=== PATIENT | male | born 1935 | race Caucasian/White ===

== ENCOUNTER 2016-06-15 17:00 | Inpatient (IN) | payer MEDICARE, OTHER ==
[2016-06-15 14:54] LABS: BASO % 0.2 % (0-2); EOS % 0.2 % (0-7); HCT-HEMATOCRIT 35.9 % (36.0-53.5); HGB-HEMOGLOBIN 11.8 gm/dl (13.5-17.0); IMMATURE GRANULOCYTES ABSOLUTE 0.06 tho/cmm (0-0.03); IMMATURE GRANULOCYTES PERCENT 0.6 % (0-0.3); LYMPH % 11.9 % (20-45); LYMPH ABSOLUTE COUNT 1.2 tho/cmm (0.8-4.5); MCH (MEAN CORPUSCULAR HGB) 29.7 pg (28.0-32.0); MCHC MEAN CORPUSCULAR HGB CONC 32.9 % (32.0-36.0); MCV (MEAN CELL VOLUME) 90.4 fl (82.0-96.0); MEAN PLATELET VOLUME 13.2 cmc (9.4-12.4); MONO % 5.7 % (0-12); MONOCYTE ABSOLUTE COUNT 0.6 tho/cmm (0.0-1.2); NEUTROPHIL ABSOLUTE COUNT 8.1 tho/cmm (1.6-8.0); NEUTROPHIL-AUTOMATED 8.1 tho/cmm (1.6-8.0); NEUTROPHILS % 81.4 % (40-80); PLATELET COUNT 227 tho/cmm (150-450); RED BLOOD COUNT 3.97 mil/cmm (4.40-5.70); RED CELL DISTRIBUTION WIDTH 16.4 % (12.4-16.4); WHITE BLOOD COUNT 9.9 tho/cmm (4.0-10.0)
[2016-06-15 15:08] LABS: ALB/GLOB RATIO 0.6 (0.8-2.0); ALBUMIN 2.8 g/dl (3.5-5.0); ALKALINE PHOSPHATASE 184 U/L (33-138); ALT/SGPT 33 U/L (12-78); ANION GAP 15 mmol/L (0-20); AST/SGOT 27 U/L (10-40); BILIRUBIN,TOTAL 1.5 mg/dl (0.0-1.5); BLOOD UREA NITROGEN 37 mg/dl (6-24); CALCIUM 8.4 mg/dl (8.5-10.5); CARBON DIOXIDE-VENOUS 27 mmol/L (22-32); CHLORIDE 96 mmol/l (96-110); CREATININE 1.63 mg/dl (0.60-1.30); GLUCOSE 426 mg/dL (70-110); POTASSIUM 3.8 mmol/L (3.7-5.1); SODIUM 134 mmol/L (135-145); eGFR VALUE FOR BLACK 45 mL/Min
[~2016-06-15 17:00] MED LIST: ASPIR 8181 M1 PO; ASPIRIN325 M3 PO; COREG3.125 M1 PO; JANUMET 50-1,01 EACH PO; LASIX40 M1 PO
[2016-06-15 18:30] LABS: URINE LEUKOCYTE ESTERASE NEGATIVE (NEG); URINE PROTEIN MODERATE (NEG)
[2016-06-15 18:32] LABS: URINE APPEARANCE CLEAR; URINE BILIRUBIN NEGATIVE (NEG); URINE BLOOD NEGATIVE (NEG); URINE COLOR YELLOW; URINE GLUCOSE (UA) MODERATE (NEG); URINE KETONE NEGATIVE (NEG); URINE NITRITE NEGATIVE (NEG)
[2016-06-15 18:37] LABS: URINE EPITHELIAL CELLS 0-1 /[HPF] (0-10); URINE RBC 0-4 /[HPF] (0-5); URINE WBC 0-3 /[HPF] (0-5)
[2016-06-16 03:03] LABS: ANION GAP 12 mmol/L (0-20); BLOOD UREA NITROGEN 39 mg/dl (6-24); CALCIUM 8.7 mg/dl (8.5-10.5); CARBON DIOXIDE-VENOUS 29 mmol/L (22-32); CHLORIDE 97 mmol/l (96-110); CHOLESTEROL 108 mg/dl (120-200); CREATININE 1.54 mg/dl (0.60-1.30); GLUCOSE 289 mg/dL (70-110); HDL CHOLESTEROL 27 mg/dl (40-60); LDL CHOLESTEROL 61 mg/dl (0-99); POTASSIUM 3.8 mmol/L (3.7-5.1); SODIUM 134 mmol/L (135-145); TRIGLYCERIDES 104 mg/dl (<149); VLDL 21 mg/dl (0-30); eGFR VALUE FOR BLACK 49 mL/Min
[2016-06-17 06:00] LABS: BLOOD UREA NITROGEN 42 mg/dl (6-24); CALCIUM 8.3 mg/dl (8.5-10.5); CARBON DIOXIDE-VENOUS 34 mmol/L (22-32); CHLORIDE 101 mmol/l (96-110); CREATININE 1.37 mg/dl (0.60-1.30); SODIUM 142 mmol/L (135-145); eGFR VALUE FOR BLACK 56 mL/Min
[2016-06-17 06:25] LABS: ANION GAP 10 mmol/L (0-20); GLUCOSE 86 mg/dL (70-110)
[2016-06-18 06:11] LABS: HGB-HEMOGLOBIN 13.7 gm/dl (13.5-17.0); PLATELET COUNT 250 tho/cmm (150-450)
[2016-06-18 06:20] LABS: ANION GAP 13 mmol/L (0-20); BLOOD UREA NITROGEN 49 mg/dl (6-24); CARBON DIOXIDE-VENOUS 35 mmol/L (22-32); CHLORIDE 94 mmol/l (96-110); GLUCOSE 78 mg/dL (70-110); SODIUM 138 mmol/L (135-145); eGFR VALUE FOR BLACK 46 mL/Min
[2016-06-18 06:21] LABS: POTASSIUM 3.7 mmol/L (3.7-5.1)
[2016-06-18] MEDS ORDERED: BISOPROLOL FUMAR5 M1 PO (15:09)
[2016-06-18] MEDS ORDERED: POTASSIUM CHLO20 ME3 PO (15:11)
== END 2016-06-18 15:45 | DRG 292 ==
LOC: EDMED 17:00 → EMR2 17:29 → PCUA 06-16 01:06
PROVIDERS: Physician Assistant; Physician Assistant Medical; ADMIT Internal Medicine Cardiovascular Disease
PROC: 05H933Z Insertion of Infusion Device into Right Brachial Vein, Percutaneous Approach (ICD-10-PCS; principal; 2016-06-17)
DX: I11.0 Hypertensive heart disease with heart failure (principal); N17.9 Acute kidney failure, unspecified; D64.9 Anemia, unspecified; E11.65 Type 2 diabetes mellitus with hyperglycemia; I35.0 Nonrheumatic aortic (valve) stenosis; I25.10 Atherosclerotic heart disease of native coronary artery without angina pectoris; I50.23 Acute on chronic systolic (congestive) heart failure; Z95.1 Presence of aortocoronary bypass graft; E87.6 Hypokalemia; Z86.73 Personal history of transient ischemic attack (TIA), and cerebral infarction without residual deficits
CPT/HCPCS: C1751; G8978-GP-CK; G8979-GP-CJ; J1650; J1815; J1940; J3475

== ENCOUNTER 2016-09-09 13:55 | Inpatient (IN) | payer MEDICARE ==
[~2016-09-09 13:55] MED LIST changes: +BISOPROLOL FUMAR5 M1 PO; +POTASSIUM CHLO20 ME3 PO
[2016-09-09 14:37] LABS: BASO % 0.1 % (0-2); HCT-HEMATOCRIT 46.1 % (36.0-53.5); HGB-HEMOGLOBIN 14.7 gm/dl (13.5-17.0); IMMATURE GRANULOCYTES PERCENT 0.7 % (0-0.3); LYMPH % 11.9 % (20-45); LYMPH ABSOLUTE COUNT 1.8 tho/cmm (0.8-4.5); MCH (MEAN CORPUSCULAR HGB) 31.6 pg (28.0-32.0); MCHC MEAN CORPUSCULAR HGB CONC 31.9 % (32.0-36.0); MCV (MEAN CELL VOLUME) 99.1 fl (82.0-96.0); MONO % 6.6 % (0-12); NEUTROPHIL ABSOLUTE COUNT 12.2 tho/cmm (1.6-8.0); NEUTROPHIL-AUTOMATED 12.2 tho/cmm (1.6-8.0); NEUTROPHILS % 80.7 % (40-80); PLATELET COUNT 132 tho/cmm (150-450); RED BLOOD COUNT 4.65 mil/cmm (4.40-5.70); RED CELL DISTRIBUTION WIDTH 19.2 % (12.4-16.4); WHITE BLOOD COUNT 15.1 tho/cmm (4.0-10.0)
[2016-09-09 14:46] LABS: URINE LEUKOCYTE ESTERASE POSITIVE (NEG); URINE PROTEIN LARGE (NEG); URINE SPECIFIC GRAVITY 1.025 (1.003-1.030)
[2016-09-09 14:47] LABS: URINE APPEARANCE HAZY; URINE BILIRUBIN MODERATE (NEG); URINE BLOOD MODERATE (NEG); URINE COLOR DARK YELLOW; URINE GLUCOSE (UA) SMALL (NEG); URINE KETONE SMALL (NEG); URINE NITRITE POSITIVE (NEG); URINE OTHER VOLUME 2 ML
[2016-09-09 14:58] LABS: URINE EPITHELIAL CELLS 0-1 /[HPF] (0-10); URINE RBC 0-1 /[HPF] (0-5); URINE WBC 0-2 /[HPF] (0-5)
[2016-09-09] MEDS ORDERED: LASIX40 M1 PO (15:09)
[2016-09-09] MEDS ORDERED: CITALOPRAM HBR10 M1 PO (15:10)
[2016-09-09 16:09] LABS: ALB/GLOB RATIO 1.1 (0.8-2.0); ALBUMIN 3.5 g/dl (3.5-5.0); ALKALINE PHOSPHATASE 154 U/L (33-138); ALT/SGPT 452 U/L (12-78); ANION GAP 36 mmol/L (0-20); AST/SGOT 836 U/L (10-40); BILIRUBIN,TOTAL 4.4 mg/dl (0.0-1.5); BLOOD UREA NITROGEN 64 mg/dl (6-24); CALCIUM 9.3 mg/dl (8.5-10.5); CARBON DIOXIDE-VENOUS 12 mmol/L (22-32); CHLORIDE 98 mmol/l (96-110); GLUCOSE 162 mg/dL (70-110); LIPASE 277 U/L (73-393); POTASSIUM 4.2 mmol/L (3.7-5.1); SODIUM 142 mmol/L (135-145); eGFR VALUE FOR BLACK 13 mL/Min
[2016-09-09 16:16] LABS: PROCALCITONIN 0.56 ng/ml (0.05-0.09)
[2016-09-09 17:38] LABS: INR 2.8 INR (0.9-1.1); PROTHROMBIN TIME 33.1 SECONDS (9.0-13.6)
== END 2016-09-10 00:45 | disposition expired | DRG 871 ==
LOC: EDMED 13:55 → EMR2 17:22 → CCU 19:13
PROVIDERS: Emergency Medicine; Nurse Practitioner Acute Care; ADMIT Hospitalist
PROC: 02HV33Z Insertion of Infusion Device into Superior Vena Cava, Percutaneous Approach (ICD-10-PCS; principal; 2016-09-09)
DX: A41.9 Sepsis, unspecified organism (principal); R65.21 Severe sepsis with septic shock; K72.00 Acute and subacute hepatic failure without coma; N17.9 Acute kidney failure, unspecified; E87.2 Acidosis; M62.82 Rhabdomyolysis; R11.2 Nausea with vomiting, unspecified; I25.5 Ischemic cardiomyopathy; Z66 Do not resuscitate; E11.649 Type 2 diabetes mellitus with hypoglycemia without coma; I12.9 Hypertensive chronic kidney disease with stage 1 through stage 4 chronic kidney disease, or unspecified chronic kidney disease; E11.22 Type 2 diabetes mellitus with diabetic chronic kidney disease; N18.3 Chronic kidney disease, stage 3 (moderate); Z79.4 Long term (current) use of insulin; I27.2 Other secondary pulmonary hypertension; I25.10 Atherosclerotic heart disease of native coronary artery without angina pectoris; Z95.1 Presence of aortocoronary bypass graft; Z86.73 Personal history of transient ischemic attack (TIA), and cerebral infarction without residual deficits; E78.5 Hyperlipidemia, unspecified; I08.1 Rheumatic disorders of both mitral and tricuspid valves; Z79.82 Long term (current) use of aspirin; R79.89 Other specified abnormal findings of blood chemistry
CPT/HCPCS: J2543; J2930; J3370; J7030